=== PATIENT | male | born 1960 | race Caucasian/White ===

== ENCOUNTER 2018-06-12 10:40 | Inpatient (IN) | payer MEDICAID ==
[2018-06-12] VITALS (33 sets, daily range): BP systolic 132–179; BP diastolic 85–144
[~2018-06-12] VITALS: Ht 182.9 cm; Wt 97.1 kg
[~2018-06-12 10:40] MED LIST: AMLO10TA12 PO; AMOX500T86 PO; ASPI81CH43 PO; GLYB5TAB8 PO; HYDRCRY2; HYDRX10T; METF-372 PO; SIMV10TA84 PO; TRIA50TA2
[2018-06-12 11:15] LABS: Basophils # (auto) 0.1 uL; Basophils % (auto) 1.1 % (0.0-2.0); Eosinophils # (auto) 0.3 uL; Eosinophils % (auto) 2.4 % (0.0-7.0); Hematocrit 44.3 % (41.0-53.0); Hemoglobin 14.8 g/dL (13.5-17.5); Lymphocytes # (auto) 2.4 uL; Lymphocytes % (auto) 21.9 % (10.0-50.0); Mean Corpuscular Hemoglobin 29.8 pg (28.0-32.0); Mean Corpuscular Hgb Conc. 33.3 g/dL (32.0-36.0); Mean Corpuscular Volume 89.3 fL (80.0-100.0); Monocytes # (auto) 0.5 uL; Monocytes % (auto) 4.3 % (0.0-12.0); Neutrophils # (auto) 7.6 uL; Neutrophils % (auto) 70.3 % (37.0-80.0); Platelet Count (auto) 325 10^3/uL (140-450); Red Blood Cells 4.96 10^6/uL (4.5-5.90); Red Cell Distribution Width 14.9 % (11.8-14.3); White Blood Cell 10.8 10^3/uL (4.4-10.8)
[2018-06-12 11:39] LABS: Albumin 4.2 g/dL (3.4-5.0); Magnesium 1.5 mg/dL (1.6-2.6); Potassium 3.8 mmol/L (3.5-5.1)
[2018-06-12 11:46] LABS: BUN/Creatinine Ratio 14.3; Bilirubin, Total 0.5 mg/dL (0.2-1.0); Total Protein 7.3 g/dL (6.4-8.2)
[2018-06-12 11:53] LABS: INR 1.14 (0.9-1.15); Partial Thromboplastin Time 28.6 sec (23.78-33.04); Prothrombin Time 12.1 sec (9.27-12.13)
[2018-06-12 12:23] LABS: Urine Amorphous Crystal MOD /hpf (None Seen); Urine Bacteria NONE SEEN /hpf (None Seen); Urine Blood Negative /uL (Negative); Urine Specific Gravity 1.008 (1.001-1.035); Urine WBC 1 /hpf (0 - 3)
[2018-06-12] MEDS ORDERED: AMIODARONE HCL 900 MG in DEXTROSE 500 ML IV SCH (12:45)
[2018-06-12] MEDS: MAGNESIUM SULFATE 1GM/100ML 100 ML IV SCH ×3 (12:46→15:17)
[2018-06-12] MEDS ORDERED: AMIODARONE HCL 150 MG in D5W 5% 100 ML IV ONE (13:30)
[2018-06-12] MEDS ORDERED: IBUPROFEN 600 MG TAB PO ONE (13:30)
[2018-06-12] MEDS ORDERED: INSULIN LISPRO (HUMAN) 100 UNITS/ML ML SC ONE (13:45)
[2018-06-12] MEDS ORDERED: NITROGLYCERIN 0.4 MG SL TAB SL PRN (14:30)
[2018-06-12] MEDS ORDERED: ONDANSETRON HCL 4 MG/2 ML VIAL IV PRN (14:30)
[2018-06-12] MEDS ORDERED: MORPHINE SULF INJ 2 MG/ML SYRINGE 1ML IV PRN ×2 (14:30)
[2018-06-12] MEDS ORDERED: HYDROcodone-ACET 5/325MG TAB PO PRN (14:30)
[2018-06-12] MEDS ORDERED: ACETAMINOPHEN 500 MG TAB PO PRN (14:30)
[2018-06-12] MEDS ORDERED: ENOXAPARIN SOD 80 MG/0.8ML SYRINGE SC ONE (14:45)
[2018-06-12] MEDS ORDERED: DEXTROSE (50%) 50ML SYRG IV PRN (14:45)
[2018-06-12 15:27] LABS: Cholesterol 167 mg/dL (< 200); Triglycerides 226 mg/dL (< 150)
[2018-06-12 15:29] LABS: HDL Cholesterol 57 mg/dL (40-59); LDL Cholesterol 87 mg/dL (< 100)
[2018-06-12] MEDS ORDERED: NITROGLYCERIN 50MG/250ML 250 ML IV ONE (16:24)
[2018-06-12] MEDS ORDERED: NITROGLYCERIN 50MG/250ML 250 ML IV SCH (16:30)
[2018-06-12] MEDS: NITROGLYCERIN 50MG/250ML 250 ML IV SCH (16:35)
[2018-06-12] MEDS ORDERED: LORazepam 0.5 MG TAB PO PRN (17:00)
[2018-06-12] MEDS: IBUPROFEN 600 MG TAB PO PRN (17:35)
[2018-06-12] MEDS: ACCU-CHEK COMFORT CURVE STRIP VI SCH ×2 (17:41→22:00)
[2018-06-12] MEDS: InsuLIN REG 1unit/0.01ml Soln (100units/ml) SC SCH ×2 (17:46→23:00)
[2018-06-12] MEDS: AMIODARONE HCL 900 MG in DEXTROSE 500 ML IV SCH (18:45)
[2018-06-12] MEDS ORDERED: HEPARIN DRIP/D5W 100UNITS/ML 250 ML IV SCH (18:56)
[2018-06-12] MEDS ORDERED: HEPARIN DRIP/D5W 100UNITS/ML 250 ML IV ONE (18:59)
[2018-06-12] MEDS: ATORVASTATIN 20 MG TAB PO SCH (22:00)
[2018-06-12] MEDS: METOPROLOL TARTRATE 25 MG TAB PO SCH (22:00)
[2018-06-12] MEDS ORDERED: DIGOXIN (250MCG/ML) 2 ML AMPULE IV ONE (23:30)
[2018-06-12] MEDS ORDERED: ESMOLOL HCL-NS 10MG/ML 250 ML IV ONE (23:42)
[2018-06-13] VITALS (81 sets, daily range): BP systolic 115–168; BP diastolic 49–121
[2018-06-13] MEDS ORDERED: ENOXAPARIN SOD 100 MG/1 ML SYRINGE SC SCH
[2018-06-13] MEDS: ESMOLOL HCL-NS 10MG/ML 250 ML IV SCH ×4 (00:08→14:00)
[2018-06-13 01:46] LABS: Partial Thromboplastin Time 34.9 sec (23.78-33.04); Prothrombin Time 10.7 sec (9.27-12.13)
[2018-06-13 04:31] LABS: Basophils # (auto) 0.1 uL; Basophils % (auto) 0.8 % (0.0-2.0); Eosinophils # (auto) 0.3 uL; Eosinophils % (auto) 2.7 % (0.0-7.0); Hematocrit 39.1 % (41.0-53.0); Lymphocytes # (auto) 3.6 uL; Mean Corpuscular Hemoglobin 29.4 pg (28.0-32.0); Mean Corpuscular Hgb Conc. 33.1 g/dL (32.0-36.0); Mean Corpuscular Volume 88.8 fL (80.0-100.0); Monocytes # (auto) 0.8 uL; Monocytes % (auto) 6.4 % (0.0-12.0); Neutrophils # (auto) 6.9 uL; Neutrophils % (auto) 59.1 % (37.0-80.0); Nucleated Red Blood Cells % 0.1 %; Platelet Count (auto) 282 10^3/uL (140-450); Red Cell Distribution Width 15.3 % (11.8-14.3); White Blood Cell 11.7 10^3/uL (4.4-10.8)
[2018-06-13 04:45] LABS: BUN/Creatinine Ratio 19.5; Calcium 7.5 mg/dL (8.5-10.1); Potassium 3.9 mmol/L (3.5-5.1)
[2018-06-13] MEDS ORDERED: HEPARIN SODIUM (PORCINE) 5000 UNITS/ML 1ML VIAL ONE (04:50)
[2018-06-13] MEDS ORDERED: HEPARIN SODIUM (PORCINE) 5000 UNITS/ML 1ML VIAL IV ONE (05:00)
[2018-06-13] MEDS: ACCU-CHEK COMFORT CURVE STRIP VI SCH ×4 (06:51→22:20)
[2018-06-13] MEDS: InsuLIN REG 1unit/0.01ml Soln (100units/ml) SC SCH ×4 (06:52→22:45)
[2018-06-13] MEDS: SODIUM CHLORIDE 0.9% 1,000 ML IV SCH ×2 (08:55→22:00)
[2018-06-13] MEDS: PANTOPRAZOLE 40 MG/10 ML VIAL IV SCH (09:42)
[2018-06-13] MEDS: ASPirin-EC 81 mg tab PO SCH (09:42)
[2018-06-13] MEDS: LISINOPRIL 10 MG TAB PO SCH (09:42)
[2018-06-13] MEDS: METOPROLOL TARTRATE 25 MG TAB PO SCH ×2 (09:43→22:00)
[2018-06-13] MEDS: NITROGLYCERIN 50MG/250ML 250 ML IV SCH (09:43)
[2018-06-13] MEDS: AMIODARONE HCL 900 MG in DEXTROSE 500 ML IV SCH (09:55)
[2018-06-13 11:55] LABS: INR 0.99 (0.9-1.15); Partial Thromboplastin Time 40.3 sec (23.78-33.04); Prothrombin Time 10.6 sec (9.27-12.13)
[2018-06-13] MEDS ORDERED: HEPARIN DRIP/D5W 100UNITS/ML 250 ML IV SCH (12:30)
[2018-06-13] MEDS ORDERED: LORazepam 2MG/ML-1ML VIAL IV ONE (14:15)
[2018-06-13] MEDS ORDERED: LORazepam 0.5 MG TAB PO PRN (14:15)
[2018-06-13] MEDS ORDERED: DIGOXIN (250MCG/ML) 2 ML AMPULE IV ONE (14:15)
[2018-06-13 16:14] LABS: Alcohol, Urine < 3.0 mg/dL (0-5); Amphetamine Screen, Urine NEGATIVE (NEGATIVE); Barbiturate Scree,Urine NEGATIVE (NEGATIVE); Benzodiazephine Screen, Urine NEGATIVE (NEGATIVE); Cannabinoid Screen, Urine POSITIVE (NEGATIVE); Cocaine Screen, Urine NEGATIVE (NEGATIVE); Opiate Scree,Urine NEGATIVE (NEGATIVE); Phencyclidine Screen, Urine NEGATIVE (NEGATIVE)
[2018-06-13 18:54] LABS: INR 0.97 (0.9-1.15); Partial Thromboplastin Time 35.9 sec (23.78-33.04); Prothrombin Time 10.4 sec (9.27-12.13)
[2018-06-13] MEDS ORDERED: MIDAZOLAM HCL 1MG/1ML-2 ML VIAL IV ONE (19:00)
[2018-06-13] MEDS: HEPARIN DRIP/D5W 100UNITS/ML 250 ML IV SCH (19:15)
[2018-06-13] MEDS ORDERED: MIDAZOLAM HCL 1MG/1ML-2 ML VIAL ONE (19:22)
[2018-06-13] MEDS ORDERED: MIDAZOLAM HCL 5 MG/ML-1ML VIAL IV ONE (22:00)
[2018-06-13] MEDS: ATORVASTATIN 20 MG TAB PO SCH (22:00)
[2018-06-14] VITALS (40 sets, daily range): BP systolic 113–166; BP diastolic 52–104
[2018-06-14 01:15] LABS: INR 0.94 (0.9-1.15); Partial Thromboplastin Time 35.1 sec (23.78-33.04); Prothrombin Time 10.1 sec (9.27-12.13)
[2018-06-14 06:29] LABS: Basophils # (auto) 0.1 uL; Basophils % (auto) 0.7 % (0.0-2.0); Eosinophils # (auto) 0.4 uL; Eosinophils % (auto) 3.5 % (0.0-7.0); Hematocrit 33.8 % (41.0-53.0); Hemoglobin 11.6 g/dL (13.5-17.5); Lymphocytes % (auto) 28.7 % (10.0-50.0); Mean Corpuscular Hemoglobin 30.1 pg (28.0-32.0); Mean Corpuscular Hgb Conc. 34.4 g/dL (32.0-36.0); Mean Corpuscular Volume 87.7 fL (80.0-100.0); Monocytes # (auto) 0.7 uL; Monocytes % (auto) 6.6 % (0.0-12.0); Neutrophils # (auto) 6.3 uL; Neutrophils % (auto) 60.5 % (37.0-80.0); Nucleated Red Blood Cells % 0.1 %; Platelet Count (auto) 245 10^3/uL (140-450); Red Blood Cells 3.86 10^6/uL (4.5-5.90); Red Cell Distribution Width 15.4 % (11.8-14.3); White Blood Cell 10.4 10^3/uL (4.4-10.8)
[2018-06-14 06:48] LABS: Potassium 3.9 mmol/L (3.5-5.1)
[2018-06-14 06:52] LABS: BUN/Creatinine Ratio 16.9
[2018-06-14] MEDS: ACCU-CHEK COMFORT CURVE STRIP VI SCH ×2 (07:00→11:16)
[2018-06-14] MEDS: InsuLIN REG 1unit/0.01ml Soln (100units/ml) SC SCH ×2 (07:00→11:17)
[2018-06-14] MEDS: HEPARIN DRIP/D5W 100UNITS/ML 250 ML IV SCH (08:35)
[2018-06-14] MEDS: ESMOLOL HCL-NS 10MG/ML 250 ML IV SCH (08:35)
[2018-06-14] MEDS: ASPirin-EC 81 mg tab PO SCH (09:35)
[2018-06-14] MEDS: METOPROLOL TARTRATE 25 MG TAB PO SCH (09:35)
[2018-06-14] MEDS: LISINOPRIL 10 MG TAB PO SCH (09:35)
[2018-06-14] MEDS: IBUPROFEN 600 MG TAB PO PRN (09:36)
[2018-06-14] MEDS: SODIUM CHLORIDE 0.9% 1,000 ML IV SCH (09:36)
[2018-06-14] MEDS: PANTOPRAZOLE 40 MG/10 ML VIAL IV SCH (09:36)
[2018-06-14 09:45] LABS: Free T4 (Free Thyroxine) 0.99 ng/dL (0.89-1.76)
[2018-06-14 09:46] LABS: Free T3 2.27 pg/mL (2.3-4.2)
[2018-06-14] MEDS ORDERED: fentaNYL CITRATE 100 MCG/2 ML VL ONE ×2 (10:03→10:28)
[2018-06-14] MEDS ORDERED: MIDAZOLAM HCL 1MG/1ML-2 ML VIAL ONE ×2 (10:03→10:28)
[2018-06-14] MEDS ORDERED: ANGIOMAX 250 MG VIAL IV ONE (10:03)
[2018-06-14] MEDS ORDERED: SODIUM CHL 0.9% 50 ML ONE (10:03)
[2018-06-14] MEDS ORDERED: LIDOCAINE 2%HCL (LOCAL ANESTH.) INJ 20ML MDV ONE (10:13)
[2018-06-14] MEDS ORDERED: IOHEXOL 350 MG/ML 100ML IJ ONE (10:16)
[2018-06-14] MEDS ORDERED: AMIODARONE HCL 200 MG TAB PO SCH (22:00)
[2018-06-15] MEDS ORDERED: DIGOXIN 0.25 MG TAB PO SCH (10:00)
== END 2018-06-14 13:48 | disposition home or self-care (01) | DRG 190 ==
LOC: EDBD 10:40 → ER 10:45 → TELE 14:35 → ICU WEST 15:51
PROVIDERS: ADMIT Nurse Practitioner Acute Care; ATTEND Internal Medicine
PROC: 4A023N7 Measurement of Cardiac Sampling and Pressure, Left Heart, Percutaneous Approach (ICD-10-PCS; principal; 2018-06-14)
PROC: B2111ZZ Fluoroscopy of Multiple Coronary Arteries using Low Osmolar Contrast (ICD-10-PCS; 2018-06-14)
PROC: B41F1ZZ Fluoroscopy of Right Lower Extremity Arteries using Low Osmolar Contrast (ICD-10-PCS; 2018-06-14)
PROC: B2151ZZ Fluoroscopy of Left Heart using Low Osmolar Contrast (ICD-10-PCS; 2018-06-14)
PROC: 5A2204Z Restoration of Cardiac Rhythm, Single (ICD-10-PCS; 2018-06-14)
DX: I21.4 Non-ST elevation (NSTEMI) myocardial infarction (principal); E83.42 Hypomagnesemia; E11.9 Type 2 diabetes mellitus without complications; I48.92 Unspecified atrial flutter; I47.1 Supraventricular tachycardia; E78.5 Hyperlipidemia, unspecified; F12.10 Cannabis abuse, uncomplicated; I10 Essential (primary) hypertension; E03.9 Hypothyroidism, unspecified; I48.91 Unspecified atrial fibrillation; Z79.84 Long term (current) use of oral hypoglycemic drugs; Z86.711 Personal history of pulmonary embolism; Z90.79 Acquired absence of other genital organ(s)
CPT/HCPCS: 36415; 71045; 75710; 80048; 80053; 80061; 80307; 81001; 82962; 83036; 83735; 84439; 84443; 84481; 84484; 85025; 85379; 85610; 85730; 86141; 87081; 93005; 93306; 93458; 94761; 96365; 96367; 96372; 99291; A6257; C9113; G0378; J1815; J2250; J3490; J7060

== ENCOUNTER 2023-12-19 10:52 | Inpatient (IN) | payer MEDICAID ==
[~2023-12-19] VITALS: Ht 182.9 cm; Wt 90.9 kg
[~2023-12-19 10:52] MED LIST changes: -AMLO10TA12 PO; -AMOX500T86 PO; -SIMV10TA84 PO; -TRIA50TA2; +TRIA75TA11
[2023-12-19 12:03] LABS: Basophils # (auto) 0.1 10 ^3/uL (0-0.2); Eosinophils # (auto) 0.2 10 ^3/uL (0-0.8); Eosinophils % (auto) 2.3 % (0.0-7.0); Hematocrit 37.3 % (41.0-53.0); Hemoglobin 12.4 g/dL (13.5-17.5); Lymphocytes # (auto) 1.4 10 ^3/uL (0.4-5.4); Lymphocytes % (auto) 14.9 % (10.0-50.0); Mean Corpuscular Hemoglobin 31.7 pg (28.0-32.0); Mean Corpuscular Hgb Conc. 33.3 g/dL (32.0-36.0); Mean Corpuscular Volume 95.4 fL (80.0-100.0); Monocytes # (auto) 0.6 10 ^3/uL (0-1.3); Neutrophils # (auto) 7.1 10 ^3/uL (1.6-8.6); Neutrophils % (auto) 75.8 % (37.0-80.0); Platelet Count (auto) 282 10^3/uL (140-450); Red Cell Distribution Width 14.2 % (11.8-14.3); White Blood Cell 9.3 10^3/uL (4.4-10.8)
[2023-12-19] MEDS: ADENOSINE 6 MG/2 ML INJ IV ONE (12:15)
[2023-12-19 12:19] LABS: INR 1.29 (0.9-1.15); Partial Thromboplastin Time 36.4 SEC (24.5-34.5); Prothrombin Time 13.4 sec (9.3-11.8)
[2023-12-19] MEDS: dilTIAZem 25 MG/5 ML VIAL IV ONE ×2 (12:19→12:20)
[2023-12-19 12:23] LABS: Alanine Aminotransferase 15 U/L (7-40); Albumin 4.6 g/dL (3.2-4.8); Alkaline Phosphatase 32 U/L (46-116); Anion Gap 9 (5-15); Aspartate Aminotransferase 14 U/L (13-40); BUN/Creatinine Ratio 16.9 (10.0-20.0); Bilirubin, Total 0.4 mg/dL (0.2-1.0); Blood Urea Nitrogen 28 mg/dL (9-23); Calcium 10.1 mg/dL (8.7-10.4); Carbon Dioxide 21 mmol/L (20-31); Chloride 104 mmol/L (98-107); Glucose 239 mg/dL (74-106); Magnesium 1.6 mg/dL (1.6-2.6); Potassium 5.1 mmol/L (3.5-5.1); Sodium 134 mmol/L (136-145); Total Protein 6.8 g/dL (5.7-8.2)
[2023-12-19 12:31] VITALS: PULSE 128; RESP 20; O2SAT 96
[2023-12-19 12:38] LABS: Urine Bacteria None Seen /hpf (None Seen)
[2023-12-19 13:48] LABS: Urine Blood Negative /uL (Negative); Urine Clarity Clear (Clear); Urine Color Colorless (Yellow); Urine Protein, UAD Negative (Negative); Urine Specific Gravity 1.006 (1.001-1.035); Urine Urobilinogen Normal (Negative); Urine WBC 1 /hpf (0 - 3)
[2023-12-19] MEDS: dilTIAZem 125mg/125ml BAG KIT 125 ML IV ONE (14:33)
[2023-12-19] MEDS: ENOXAPARIN SOD 100 MG/1 ML SYRINGE SC ONE (15:41)
[2023-12-19] MEDS: METOPROLOL TARTRATE 1MG/1ML-5ML VIAL IV ONE ×2 (18:46→20:31)
[2023-12-19] MEDS ORDERED: ONDANSETRON HCL 4 MG/2 ML VIAL IV PRN (19:00)
[2023-12-19] MEDS ORDERED: DOCUSATE SOD 100 MG CAP PO PRN (19:00)
[2023-12-19] MEDS ORDERED: ACETAMINOPHEN 325 MG TAB PO PRN (19:00)
[2023-12-19] MEDS ORDERED: NITROGLYCERIN 0.4 MG SL TAB SL PRN (19:00)
[2023-12-19] MEDS ORDERED: MORPHINE SULFATE INJ 2 MG/ml SYRG IV PRN (19:00)
[2023-12-19] MEDS ORDERED: LISI20TA56 PO (19:06)
[2023-12-19] MEDS ORDERED: LEVO50TA7 PO (19:06)
[2023-12-19] MEDS ORDERED: MET50T PO (19:06)
[2023-12-19] MEDS ORDERED: RIV20T PO (19:06)
[2023-12-19] MEDS ORDERED: FENO145T27 PO (19:06)
[2023-12-19] MEDS ORDERED: TAMS0.4C39 PO (19:06)
[2023-12-19] MEDS ORDERED: METF-371 PO (19:06)
[2023-12-19] MEDS ORDERED: SITA25TA3 PO (19:06)
[2023-12-19] MEDS ORDERED: DEXTROSE (50%) 50ML SYRG IV PRN (19:15)
[2023-12-19] MEDS: SODIUM CHLORIDE 0.9% 500 ML IV ONE (19:37)
[2023-12-19] MEDS: LORazepam 2MG/ML-1ML VIAL IV ONE (19:58)
[2023-12-19] MEDS: CARVEDILOL 12.5 MG TAB PO ONE (21:38)
[2023-12-19 22:40] VITALS: PULSE 141; RESP 19; O2SAT 97
[2023-12-19] MEDS: METOPROLOL TARTRATE 50 MG TAB PO SCH (22:50)
[2023-12-19] MEDS: SODIUM CHLOR 0.9% PF (SALINE LOCK) 10ML VIAL/SYR IV SCH (22:51)
[2023-12-19] MEDS: ACCU-CHEK COMFORT CURVE STRIP VI SCH (22:57)
[2023-12-19] MEDS: InsuLIN REG 1unit/0.01ml Soln (100units/ml) SC SCH (23:00)
[2023-12-20] VITALS (34 sets, daily range): BP systolic 83–155; BP diastolic 62–123; PULSE 74–147; RESP 14–26; TEMP 98–98.2; O2SAT 94–100
[2023-12-20] MEDS: LABETALOL INJECTION 250 MG in SODIUM CHL 0.9% 200 ML IV ONE (01:14)
[2023-12-20 01:36] LABS: Basophils # (auto) 0.1 10 ^3/uL (0-0.2); Basophils % (auto) 1.4 % (0.0-2.0); Eosinophils # (auto) 0.3 10 ^3/uL (0-0.8); Eosinophils % (auto) 3.4 % (0.0-7.0); Hematocrit 37.3 % (41.0-53.0); Hemoglobin 12.5 g/dL (13.5-17.5); Lymphocytes # (auto) 2.6 10 ^3/uL (0.4-5.4); Mean Corpuscular Hemoglobin 31.9 pg (28.0-32.0); Mean Corpuscular Hgb Conc. 33.5 g/dL (32.0-36.0); Monocytes # (auto) 0.6 10 ^3/uL (0-1.3); Neutrophils # (auto) 5.1 10 ^3/uL (1.6-8.6); Neutrophils % (auto) 58.2 % (37.0-80.0); Nucleated Red Blood Cells % 0.1 %; Platelet Count (auto) 298 10^3/uL (140-450); Red Blood Cells 3.93 10^6/uL (4.5-5.90); Red Cell Distribution Width 14.3 % (11.8-14.3); White Blood Cell 8.8 10^3/uL (4.4-10.8)
[2023-12-20 01:52] LABS: Alanine Aminotransferase 11 U/L (7-40); Albumin 4.4 g/dL (3.2-4.8); Alkaline Phosphatase 30 U/L (46-116); Anion Gap 5 (5-15); Aspartate Aminotransferase 16 U/L (13-40); BUN/Creatinine Ratio 14.8 (10.0-20.0); Bilirubin, Total 0.3 mg/dL (0.2-1.0); Blood Urea Nitrogen 19 mg/dL (9-23); Calcium 9.5 mg/dL (8.7-10.4); Carbon Dioxide 23 mmol/L (20-31); Chloride 110 mmol/L (98-107); Magnesium 1.7 mg/dL (1.6-2.6); Potassium 4.3 mmol/L (3.5-5.1); Sodium 138 mmol/L (136-145); Total Protein 6.5 g/dL (5.7-8.2)
[2023-12-20 02:12] LABS: Glucose 137 mg/dL (74-106)
[2023-12-20] MEDS: dilTIAZem 25 MG/5 ML VIAL IV ONE (04:13)
[2023-12-20] MEDS: DIGOXIN (250MCG/ML) 2 ML AMPULE IV ONE ×2 (05:09→06:36)
[2023-12-20 05:16] LABS: Basophils # (auto) 0.1 10 ^3/uL (0-0.2); Basophils % (auto) 1.4 % (0.0-2.0); Eosinophils # (auto) 0.4 10 ^3/uL (0-0.8); Eosinophils % (auto) 3.9 % (0.0-7.0); Hematocrit 37.1 % (41.0-53.0); Hemoglobin 12.8 g/dL (13.5-17.5); Lymphocytes # (auto) 2.7 10 ^3/uL (0.4-5.4); Mean Corpuscular Hemoglobin 32.5 pg (28.0-32.0); Mean Corpuscular Hgb Conc. 34.4 g/dL (32.0-36.0); Mean Corpuscular Volume 94.3 fL (80.0-100.0); Monocytes # (auto) 0.7 10 ^3/uL (0-1.3); Neutrophils # (auto) 5.2 10 ^3/uL (1.6-8.6); Neutrophils % (auto) 56.7 % (37.0-80.0); Platelet Count (auto) 298 10^3/uL (140-450); Red Blood Cells 3.94 10^6/uL (4.5-5.90); Red Cell Distribution Width 14.1 % (11.8-14.3); White Blood Cell 9.1 10^3/uL (4.4-10.8)
[2023-12-20 05:33] LABS: Alanine Aminotransferase 11 U/L (7-40); Albumin 4.4 g/dL (3.2-4.8); Alkaline Phosphatase 28 U/L (46-116); Anion Gap 9 (5-15); Aspartate Aminotransferase 18 U/L (13-40); BUN/Creatinine Ratio 14.5 (10.0-20.0); Blood Urea Nitrogen 18 mg/dL (9-23); Calcium 9.5 mg/dL (8.7-10.4); Carbon Dioxide 22 mmol/L (20-31); Chloride 108 mmol/L (98-107); Glucose 126 mg/dL (74-106); Potassium 4.3 mmol/L (3.5-5.1); Sodium 139 mmol/L (136-145)
[2023-12-20 05:34] LABS: Bilirubin, Total 0.3 mg/dL (0.2-1.0); Total Protein 6.6 g/dL (5.7-8.2)
[2023-12-20] MEDS: InsuLIN REG 1unit/0.01ml Soln (100units/ml) SC SCH (06:31)
[2023-12-20 08:49] LABS: Amphetamine Screen, Urine Neg (NEGATIVE); Barbiturate Scree,Urine Neg (NEGATIVE); Benzodiazephine Screen, Urine Neg (NEGATIVE)
[2023-12-20 08:50] LABS: Cannabinoid Screen, Urine Pos (NEGATIVE); Cocaine Screen, Urine Neg (NEGATIVE); Opiate Scree,Urine Neg (NEGATIVE); Phencyclidine Screen, Urine Neg (NEGATIVE)
[2023-12-20] MEDS: metFORMIN HYDROCHLORIDE 850 MG TAB PO SCH (09:02)
[2023-12-20] MEDS: LEVOTHYROXINE SODIUM 50 MCG TAB PO SCH (10:00)
[2023-12-20] MEDS: LISINOPRIL 20 MG TAB PO SCH (10:02)
[2023-12-20] MEDS: ASPirin 81 mg TAB PO SCH (10:04)
[2023-12-20] MEDS: RIVAROXABAN 20 MG TAB PO SCH (10:05)
[2023-12-20] MEDS: HYDROcodone-ACET 5/325MG TAB PO PRN (15:13)
[2023-12-20] MEDS: AMIODARONE BOLUS KIT 100 ML IV ONE (17:12)
[2023-12-20] MEDS: TAMSULOSIN HYDROCHLORIDE 0.4 MG CAP PO SCH (18:12)
[2023-12-20] MEDS: dilTIAZem 125mg/125ml BAG KIT 125 ML IV SCH (18:13)
[2023-12-21] VITALS (27 sets, daily range): BP systolic 93–153; BP diastolic 58–85; PULSE 59–91; RESP 10–26; TEMP 98.5–98.6; O2SAT 90–99
[2023-12-21] MEDS ORDERED: HEPARIN SODIUM (PORCINE) 5000 UNITS/ML 1ML VIAL IV ONE (00:15)
[2023-12-21] MEDS: HEPARIN SODIUM (PORCINE) 5000 UNITS/ML 1ML VIAL ONE (00:22)
[2023-12-21] MEDS: MIDAZOLAM HCL 2MG/2ML 2ml VIAL (1mg/ml) ONE (00:26)
[2023-12-21] MEDS: MIDAZOLAM HCL 2MG/2ML 2ml VIAL (1mg/ml) IV ONE (00:46)
[2023-12-21] MEDS: MAGNESIUM SULFATE 1GM/100ML 100 ML IV SCH (01:00)
[2023-12-21 04:42] LABS: Basophils # (auto) 0.1 10 ^3/uL (0-0.2); Basophils % (auto) 0.8 % (0.0-2.0); Eosinophils # (auto) 0.3 10 ^3/uL (0-0.8); Hematocrit 36.6 % (41.0-53.0); Hemoglobin 12.5 g/dL (13.5-17.5); Lymphocytes # (auto) 2.1 10 ^3/uL (0.4-5.4); Lymphocytes % (auto) 15.3 % (10.0-50.0); Mean Corpuscular Hemoglobin 32.4 pg (28.0-32.0); Mean Corpuscular Hgb Conc. 34.2 g/dL (32.0-36.0); Mean Corpuscular Volume 94.6 fL (80.0-100.0); Monocytes % (auto) 7.6 % (0.0-12.0); Neutrophils # (auto) 10.2 10 ^3/uL (1.6-8.6); Neutrophils % (auto) 74.3 % (37.0-80.0); Platelet Count (auto) 289 10^3/uL (140-450); Red Blood Cells 3.87 10^6/uL (4.5-5.90); Red Cell Distribution Width 13.9 % (11.8-14.3); White Blood Cell 13.8 10^3/uL (4.4-10.8)
[2023-12-21 04:57] LABS: Alanine Aminotransferase 10 U/L (7-40); Albumin 4.5 g/dL (3.2-4.8); Alkaline Phosphatase 31 U/L (46-116); Anion Gap 6 (5-15); Aspartate Aminotransferase 12 U/L (13-40); BUN/Creatinine Ratio 15.2 (10.0-20.0); Bilirubin, Total 0.5 mg/dL (0.2-1.0); Blood Urea Nitrogen 17 mg/dL (9-23); Calcium 9.4 mg/dL (8.7-10.4); Carbon Dioxide 23 mmol/L (20-31); Chloride 107 mmol/L (98-107); Glucose 144 mg/dL (74-106); Magnesium 2.1 mg/dL (1.6-2.6); Potassium 4.2 mmol/L (3.5-5.1); Sodium 136 mmol/L (136-145); Total Protein 6.7 g/dL (5.7-8.2)
[2023-12-21] MEDS: FENOFIBRATE 145 MG PO SCH (09:35)
[2023-12-21] MEDS: [UNRECOGNIZED DRUG - OTHER] PO SCH (09:35)
[2023-12-21] MEDS: BY MOUTH DAILY PO SCH (09:35)
[2023-12-21] MEDS: SITAGLIPTIN PO SCH (09:35)
[2023-12-21] MEDS ORDERED: APIXABAN 5 MG TAB PO SCH (10:00)
[2023-12-21 10:43] LABS: Free T3 3.45 pg/mL (2.3-4.2); Free T4 (Free Thyroxine) 1.37 ng/dL (0.89-1.76)
== END 2023-12-21 17:32 | disposition home or self-care (01) | DRG 201 ==
LOC: EDBD 10:52 → ER 10:52 → EDUNIT# 10:52 → TELE 18:55
PROVIDERS: ADMIT Nurse Practitioner Family; ATTEND Internal Medicine
PROC: 5A2204Z Restoration of Cardiac Rhythm, Single (ICD-10-PCS; principal; 2023-12-20)
DX: I47.10 Supraventricular tachycardia, unspecified (principal); I21.A1 Myocardial infarction type 2; E11.9 Type 2 diabetes mellitus without complications; I10 Essential (primary) hypertension; I48.0 Paroxysmal atrial fibrillation; E78.5 Hyperlipidemia, unspecified; I48.92 Unspecified atrial flutter; E03.9 Hypothyroidism, unspecified; N40.0 Benign prostatic hyperplasia without lower urinary tract symptoms; Z79.01 Long term (current) use of anticoagulants; Z79.899 Other long term (current) drug therapy; Z79.84 Long term (current) use of oral hypoglycemic drugs; Z79.82 Long term (current) use of aspirin
CPT/HCPCS: 36415; 71045; 80053; 80307; 81001; 82962; 83036; 83605; 83735; 83880; 84100; 84439; 84443; 84481; 84484; 85025; 85610; 85730; 87040; 92960; 93005; 93306; G0378; J0153; J1815; J2250